=== PATIENT | male | born 1965 | race Caucasian/White ===

== ENCOUNTER 2017-06-18 22:06 | Inpatient (IN) | payer MEDICARE, OTHER ==
[~2017-06-18] VITALS: Ht 175.3 cm; Wt 69.4 kg
--- NOTE | ~2017-06-18 | PN ---
Unit #: [id number] #: [id number] Patient: JACKY CHRISTENSEN [id number] [facility] [address] [place] [address] [id number] I MR#: [id number] NAME: JACKY CHRISTENSEN ROOM: P208 Age: 51 Sex: M Admission Date: 06/19/2017 : 1965 Attending Physician: Karrie Ríos M.D. Admitting Physician: Karrie Ríos M.D. Primary Care Physician: Primary Care Physician Lizabeth MURRAY NOTES DATE June 22, 2017 DISCUSSION Mr. Christensen is a 51-year-old white male, who was seen today and chart was reviewed and the case was discussed with the staff. He has been anxious, withdrawn, and rather seclusive to himself. Meanwhile, he has been cooperative with the treatment recommendations and he has been taking the medications and tolerating them fairly well with no reported side effects. MENTAL STATUS EXAMINATION Middle-aged white male, who was casually dressed with fair personal hygiene and appears to be in no acute distress or discomfort. He was awake and alert with intact orientation. His mood is anxious with a congruent affect. His thought processes are disorganized with some looseness of associations, and also denies any auditory or visual hallucinations. His insight and judgment remain slightly impaired. TREATMENT PLAN 1. We will continue him on his current medications and treatment protocol, and will monitor his response to the medications, and make further adjustments as needed. 2. We will continue to followup. Dictated by... Leonila Fuentes/daniel TD: 06/22/2017 11:27 JOB #: [id number] Unit #: [id number] #: [id number] Patient: JACKY CHRISTENSEN PROGRESS NOTES Page 1 of 1 X Karrie Ríos MD PROGRESS NOTE
--- NOTE | ~2017-06-18 | PA ---
Unit #: [id number] #: [id number] Patient: [facility]ENSEN [id number] [facility] [address] [place] [address] [id number] MR#: [id number] NAME: JACKY CHRISTENSEN ROOM: P208 Age: 51 Sex: M Admission Date: 06/19/2017 : 1965 Date of Assessment: Attending Physician: Karrie Ríos M.D. Admitting Physician: Karrie Ríos M.D. Primary Care Physician: Primary Care Physician No PSYCHIATRIC ASSESSMENT DATE OF SERVICE 06/19/2017. IDENTIFYING DATA Mr. Christensen is a 51-year-old single white male, who is a resident of [place], [place], and was brought to the hospital on an involuntary commitment. CHIEF COMPLAINT "Suicidal ideations with a plan to shoot myself in the head." HISTORY OF PRESENT ILLNESS Mr. Christensen is a 51-year-old white male, who was brought to the hospital with increasing depression and suicidal ideation reporting having suicidal thoughts with a plan to shoot himself in the head and had a blood alcohol level of 0.27, and upon presentation, he reports that he has been cutting on his arms with a knife and reports that he is drinking alcohol daily, two-fifths of vodka on a daily basis, and reports that his father this year and left him with 7 cats to feed in the house and he cannot afford with his disability of 750 dollars a month and does endorse significant depression, anxiety, restlessness, feelings of hopelessness and helplessness, and suicidal ideations and was seen to be a danger to self and therefore recommendation for inpatient level of care for safety and stabilization was made and the patient was transferred to us. SUBSTANCE ABUSE HISTORY The patient reports history of alcohol dependence and states that he has been drinking ever since he was 14 years old and currently has been drinking two-fifths on a daily basis. PAST PSYCHIATRIC HISTORY The patient has had a history of [facility], and review of the medical records indicate currently he is not active in any treatment program, is not seeing a psychiatrist, and is not taking any psychotropic medications. PAST MEDICAL HISTORY Hypertension. ALLERGIES No known medication allergies. CURRENT MEDICATIONS Unit #: [id number] #: [id number] Patient: JACKY CHRISTENSEN None. PERSONAL AND SOCIAL HISTORY A 51-year-old white male, who reports that he is single, unemployed, and lives by himself and is on disability and has poor social support system. MENTAL STATUS EXAMINATION Middle-aged white male, who was casually dressed with fair personal hygiene, appears to be in no acute distress or discomfort. He was awake and alert on interaction with intact orientation to time, place, and person. His mood was anxious and depressed with a congruent affect. His speech was slow and restricted in content. His thought processes were disorganized with some looseness of associations and suicidal ideations. His insight and judgment remain significantly impaired. DIAGNOSTIC IMPRESSION Psychiatric: Major depressive disorder, recurrent, moderate, without psychotic features and alcohol dependence, moderate, in acute withdrawals. Medical: None. Stressors: Moderate psychosocial stressors. TREATMENT PLAN 1. The patient has presented with dual diagnosis of mood disorder and substance abuse and has been decompensating and will need inpatient hospitalization for detoxification, safety, and stabilization. We will start him on detox protocol. We will closely monitor for any worsening withdrawal symptoms. 2. Supportive therapy was provided to the patient. 3. Safe, structured, and nourishing environment will be provided. ESTIMATED LENGTH OF STAY 5 to 7 days. ABILITY TO HELP SELF Limited. WILLINGNESS TO HELP SELF The patient appears to be willing to help self. STRENGTHS 1. Communicative. 2. Cooperative. PROBLEMS 1. Chronic dysphoric symptoms. 2. Chronic chemical dependency. 3. Poor social support system. DISCHARGE CRITERIA This will be contingent upon the patient's ability to show resolution of his depression and his ability to stay safe to himself, particularly after discharge from the hospital. Dictated by... Leonila Fuentes/thalia Unit #: [id number] #: [id number] Patient: JACKY CHRISTENSEN TD: 06/19/2017 13:19 JOB #: [id number] PSYCHIATRIC ASSESSMENT Page 1 of 1 X Karrie Ríos MD PSYCHIATRIC ASSESSMENT
--- NOTE | ~2017-06-18 | PN ---
Unit #: [id number] #: [id number] Patient: JACKY CHRISTENSEN [id number] [facility] [address] [place] [address] [id number] I MR#: [id number] NAME: JACKY CHRISTENSEN ROOM: P208 Age: 51 Sex: M Admission Date: 06/19/2017 : 1965 Attending Physician: Karrie Ríos M.D. Admitting Physician: Karrie Ríos M.D. Primary Care Physician: Primary Care Physician Lizabeth HUMPHREY PROGRESS NOTES DATE OF SERVICE 06/20/2017 DISCUSSION Mr. Christensen is a 51-year-old white male who was seen today. Chart was reviewed and case was discussed with the staff. He has been anxious, withdrawn, and rather seclusive to himself. Meanwhile, he has been cooperative with the treatment recommendations and has been taking the medications and tolerating them fairly well with no reported side effects. MENTAL STATUS EXAMINATION Middle-aged white male who is casually dressed with fair personal hygiene, appears to be in no acute distress or discomfort. He was awake and alert with impaired attention and concentration. His mood is anxious with congruent affect. He denies any suicidal or homicidal ideations. His insight and judgment remain slightly impaired. TREATMENT PLAN 1. We will continue him on his current medications and treatment protocol. We will monitor his response to the medications and make further adjustments as needed. 2. We will continue to follow up. Dictated by... Leonila Fuentes/naeg TD: 06/20/2017 09:22 JOB #: [id number] [facility] PROGRESS NOTES Page 1 of 1 X Karrie Ríos MD PROGRESS NOTE
--- NOTE | ~2017-06-18 | PN ---
Unit #: [id number] #: [id number] Patient: JACKY CHRISTENSEN [id number] [facility] [address] [place] [address] [id number] I MR#: [id number] NAME: JACKY CHRISTENSEN ROOM: P208 Age: 51 Sex: M Admission Date: 06/19/2017 : 1965 Attending Physician: Karrie Ríos M.D. Admitting Physician: Karrie Ríos M.D. Primary Care Physician: Primary Care Physician Lizabeth MURRAY NOTES DATE OF SERVICE 06/21/2017 DISCUSSION Mr. Christensen is a 51-year-old white male who was seen today. Chart was reviewed and case was discussed with the staff. He has been anxious, withdrawn, and he has been cooperative with treatment recommendations and has been taking the medications and tolerating them fairly well with no reported side effects. MENTAL STATUS EXAMINATION Middle-aged white male who is casually dressed with fair personal hygiene, appears to be in no acute distress or discomfort. He was awake and alert on interaction with intact orientation. His mood is anxious with congruent affect. He denies any suicidal or homicidal ideations and also denies any auditory or visual hallucinations. His insight and judgment remain slightly impaired. TREATMENT PLAN 1. We will continue him on his current treatment protocol. We will monitor his response to the medications and make further adjustments as needed. 2. We will continue to follow up. Dictated by... Karrie Ríos M.D. IAA/bzg TD: 06/21/2017 14:42 JOB #: [id number] Unit #: [id number] #: [id number] Patient: JACKY CHRISTENSEN PROGRESS NOTES Page 1 of 1 X Karrie Ríos MD PROGRESS NOTE
--- NOTE | ~2017-06-18 | DS ---
Unit #: [id number] #: [id number] Patient: JACKY CHRISTENSEN [id number] [place] [address] [id number] I MR#: [id number] NAME: JACKY CHRISTESNEN ROOM: P208 Age: 51 Sex: M Admission Date: 06/19/2017 : 1965 Discharge Date: 06/23/2017 Attending Physician: Karrie Ríos M.D. DISCHARGE SUMMARY IDENTIFYING DATA Mr. Christensen is a 51-year-old single white male who is a resident of [place], [place], and was brought to the hospital on an involuntary commitment. DISCHARGE DIAGNOSES PSYCHIATRIC: 1. Major depressive disorder, recurrent, moderate, without psychotic features. 2. Opiate dependence, moderate, in acute withdrawal. MEDICAL: None. STRESSORS: Moderate psychosocial stressors. HISTORY OF PRESENT ILLNESS Same as in initial psychiatric evaluation. PAST PSYCHIATRIC HISTORY Same as in initial psychiatric evaluation. PAST MEDICAL HISTORY Same as in initial psychiatric evaluation. HOSPITAL COURSE The patient was admitted to the adult psychiatric unit at [facility] and was oriented to the hospital environment. Routine p.r.n. medications were initiated, and he was started back on his home medications. Alcohol detox protocol was initiated (1) . He was taking the medications regularly and was tolerating them fairly well and able to show fairly decent therapeutic response with improvement in depression and anxiety, and as such, it was decided that he will be discharged home and will continue treatment on an outpatient basis. DISCHARGE MEDICATIONS Melatonin 6 mg at bedtime for depression. DISCHARGE CONDITION Stable. PROGNOSIS Fair. Dictated by... Unit #: [id number] #: [id number] Patient: JACKY CHRISTENSEN Karrie Ríos M.D. IAA/dwaine TD: 06/24/2017 14:51 JOB #: [id number] DISCHARGE SUMMARY Page 1 of 1 X Karrie Ríos MD X DISCHARGE SUMMARY
--- NOTE | ~2017-06-18 | HP ---
Unit #: [id number] #: [id number] Patient: JACKY CHRISTENSEN [id number] [place] [address] [id number] I MR#: [id number] NAME: JACKY CHRISTENSEN ROOM: P208 Age: 51 Sex: M Admission Date: 06/19/2017 : 1965 Attending Physician: Karrie Ríos M.D. Admitting Physician: Karrie Ríos M.D. Primary Care Physician: Primary Care Physician No HISTORY AND PHYSICAL HISTORY OF PRESENT ILLNESS Jacky is a 51-year-old male admitted on 06/19/[address] [place] [address] for detox from alcohol. PAST MEDICAL HISTORY 1. COPD. 2. Hepatitis C. He reports that he received treatment and his hepatitis C is currently in remission. PAST SURGICAL HISTORY 1. Right hip replacement. 2. Right shoulder replacement. ALLERGIES None. SOCIAL HISTORY He smokes 2 packs of cigarettes daily. Binge alcohol use. Recently, he has been drinking about a fifth of vodka daily. Occasional marijuana use. He is currently single and previously had been living with his father. He is currently homeless. FAMILY HISTORY Noncontributory. REVIEW OF SYSTEMS CONSTITUTIONAL: No fever or chills. HEENT: Denies any sore throat, ear pain or runny nose. CARDIOVASCULAR: Denies chest pain, irregular heart rhythm or palpitations. CHEST: Denies shortness of breath or cough. No hemoptysis. GASTROINTESTINAL: Denies nausea, vomiting, diarrhea or chronic constipation. ENDOCRINE: Denies history of increased thirst or urination. No recent significant weight loss or gain. GENITOURINARY: Denies dysuria, frequency, or hematuria. SKIN: Denies any rashes. HEMATOLOGIC: Denies history of increased bleeding or bruising. MUSCULOSKELETAL: Denies any hot, swollen joints. No generalized muscle pain. NEUROLOGIC: Denies problems with vision or speech. No frequent, severe headaches. No numbness, tingling or weakness in any extremities. Denies loss of bladder or bowel control. Unit #: [id number] #: [id number] Patient: JACKY CHRISTENSEN CURRENT MEDICATIONS None. PHYSICAL EXAMINATION GENERAL: Alert, oriented, in no acute distress. VITAL SIGNS: Blood pressure 115/73, heart rate 87, respirations 19, temperature 98.3. HEIGHT: 5 feet 9. WEIGHT: 183 pounds. SKIN: Warm and dry without rash or lesion. HEENT: Normocephalic. TMs not viewed. Oral and nasal passages clear. Conjunctivae clear. PERRLA. EOMs intact. NECK: Supple without lymphadenopathy or thyromegaly. HEART: Regular rate and rhythm without murmur. LUNGS: Clear. ABDOMEN: Soft, nontender, without masses or hepatosplenomegaly. : Not done. EXTREMITIES: No evidence of cyanosis, clubbing or edema. Moves all without focal deficit. NEUROLOGICAL: Grossly within normal limits. Cranial Nerves: II: Visual dorantes are intact. III, IV AND : Extraocular movements are intact. Pupils are equal, round and reactive to light. V: Facial sensation is grossly normal. VII: Facial movements and expression are normal. VIII: Auditory acuity grossly intact. IX, X: Uvula is midline. Phonation is normal. XI: Patient shrugs shoulders and turns head normally. XII: Tongue protrudes in the midline. Sensory and Motor Function: Sensory and motor sensation is grossly normal. Motor: moves all extremities well. Coordination: Gait is normal. Deep Tendon Reflexes: Intact. IMPRESSION 1. Psychiatric admission. 2. Chronic obstructive pulmonary disease. 3. History of hepatitis C, in remission. RECOMMENDATIONS PSYCHIATRIC: Per psychiatrist. MEDICAL: No contraindication to participate in facility's activities. MEDICAL PROGNOSIS Good. MEDICAL CONDITION Stable. Dictated by..Mohan Veras/eleuterio TD: 06/19/2017 19:38 JOB #: [id number] Unit #: [id number] #: [id number] Patient: JACKY CHRISTENSEN HISTORY AND PHYSICAL Page 1 of 1 X ILYA ALBERTO APRN HISTORY AND PHYSICAL
[~2017-06-18 22:06] MED LIST: DIAZEPAM PO; SEROQUEL PO
[2017-06-19 10:00] LABS: URINE APPEARANCE CLOUDY; URINE BILIRUBIN NEG (NEG); URINE BLOOD NEG (NEG); URINE COLOR YELLOW; URINE GLUCOSE NORM (NORM); URINE KETONE NEG (NEG); URINE LEUKOCYTE ESTERASE NEG (NEG); URINE NITRATE NEG (NEG); URINE PROTEIN NEG (NEG); URINE UROBILINOGEN NORM (NORM)
[2017-06-19 10:34] LABS: AMPHETAMINE NEG (NEG); BARBITURATES NEG (NEG); BENZODIAZEPINES NEG (NEG); COCAINE POS (NEG); MARIJUANA NEG (NEG); OPIATES NEG (NEG); TRICYCLIC ANTIDEPRESSANTS NEG (NEG); U METHADONE NEG (NEG)
[2017-06-20 09:52] LABS: BASOPHIL% 0.2 % (0-2.5); EOSINOPHIL# 0.2 X10e3 (0-0.7); EOSINOPHIL% 1.2 % (0.0-7.0); HEMATOCRIT 44.2 % (38.0-50.0); HEMOGLOBIN 14.8 gm/dL (13.0-16.0); LYMPHOCYTE# 4.3 X10e3 (1.0-3.5); MEAN CELL VOLUME 92.7 FL (83-96); MEAN CORPUSCULAR HEMOGLOBIN 31.1 PG (28-34); MEAN CORPUSCULAR HGB CONC 33.5 g/dL (30-36); MEAN PLATELET VOLUME 8.4 FL (6.5-11.5); MONOCYTE# 1.1 X10e3 (0-1.0); MONOCYTE% 8.3 % (3.0-12.0); NEUTROPHIL# 7.1 X10e3 (1.5-7.1); NEUTROPHIL% 56.3 % (40-75); PLATELET COUNT 276 X10e3 (140-420); RED BLOOD COUNT 4.76 X10e (3.90-5.60); RED CELL DISTRIBUTION WIDTH 14.2 % (11.0-15.5); WHITE BLOOD COUNT 12.7 X10e3 (4.0-10.5)
[2017-06-20 10:02] LABS: DIFF IND NO
[2017-06-20 10:19] LABS: ALBUMIN SERUM 3.8 g/dL (3.5-5.0); BILIRUBIN,TOTAL 0.4 mg/dL (0.2-2.0); BUN/CREATININE RATIO 12.22; CALCIUM SERUM 9.2 mg/dL (8.4-10.2); CREATININE SERUM 0.9 mg/dL (0.6-1.4); GLOM FILT RATE Estimated 97.2 mL/min (>60); POTASSIUM 4.3 mmol/L (3.5-5.1); PROTEIN TOTAL SERUM 7.1 g/dL (6.0-8.3)
== END 2017-06-23 12:33 | disposition home or self-care (01) | DRG 885 ==
LOC: P2S 06-19 00:17
PROVIDERS: Psychiatry & Neurology Psychiatry
PROC: HZ2ZZZZ Detoxification Services for Substance Abuse Treatment (ICD-10-PCS; principal; 2017-06-19)
DX: F33.1 Major depressive disorder, recurrent, moderate (principal); I10 Essential (primary) hypertension; F10.239 Alcohol dependence with withdrawal, unspecified; Z96.641 Presence of right artificial hip joint; Z96.611 Presence of right artificial shoulder joint; J44.9 Chronic obstructive pulmonary disease, unspecified; Z86.19 Personal history of other infectious and parasitic diseases
CPT/HCPCS: 80053; 80307; 81003; 85025; J2060